=== PATIENT | female | born 1960 | race Caucasian/White ===

== ENCOUNTER 2020-08-10 22:16 | Emergency (ER) | payer BC ==
[~2020-08-10] VITALS: Ht 167.6 cm; Wt 76.4 kg
[2020-08-10 22:24] VITALS: TEMP 98.6
[2020-08-10 23:18] LABS: COLLECTION METHOD CLEAN CATCH
[2020-08-10 23:31] LABS: MUCOUS Present /lpf; PH 5 (5-8); URINE APPEARANCE Hazy; URINE BACTERIA Rare /hpf; URINE BILIRUBIN Negative (NEGATIVE); URINE BLOOD 1+ (NEGATIVE); URINE COLOR Yellow; URINE GLUCOSE Negative (NEGATIVE); URINE KETONE 1+ (NEGATIVE); URINE LEUKOCYTE ESTERASE 3+ (NEGATIVE); URINE NITRATE Negative (NEGATIVE); URINE PROTEIN(semi-quant) 2+ (NEGATIVE); URINE UROBILINOGEN Negative (NEGATIVE)
[2020-08-11 00:13] LABS: BASO # 0.1 (0.0-0.2); BASO % 0.6 % (0.0-2.0); EOS # 0.3 (0.0-0.7); EOS % 2.3 % (0-4.0); GRAN % 77.5 % (42.2-75.2); HEMOGLOBIN 10.9 g/dl (12.5-16.0); LYMPH # 1.4 (1.2-3.4); LYMPH % 12.2 % (20.0-51.0); MEAN CELL VOLUME 91 fl (80.0-100.0); MEAN CORPUSCULAR HEMOGLOBIN 30 pg (27.0-31.0); MEAN CORPUSCULAR HGB CONC 33 g/dl (33.0-37.0); MEAN PLATELET VOLUME 9.8 fl (7.4-10.4); MONO # 0.8 (0.1-0.6); MONO % 7.1 % (1.7-9.3); PLATELET COUNT 429 K/mm3 (130-400); RED BLOOD COUNT 3.65 M/mm3 (4.10-5.30); REDCELL DISTRIBUTION WIDTH-CV 12.4 % (11.5-14.5)
[2020-08-11 00:15] LABS: HEMATOCRIT 33.3 % (37.0-47.0)
[2020-08-11 00:19] LABS: ALBUMIN 4.3 gm/dL (3.5-5.0); BILIRUBIN,TOTAL 0.5 mg/dL (0.0-1.0); CALCIUM 9.4 mg/dL (8.4-10.2); CREATININE, serum 0.76 (0.52-1.25); TOTAL PROTEIN 7.5 gm/dL (6.4-8.2)
[2020-08-11 17:04] VITALS: BP 103/77; PULSE 102
== END 2020-08-11 17:07 | disposition short-term general hospital (02) ==
LOC: COL.ER 22:16
PROVIDERS: Nurse Practitioner
DX: N83.8 Other noninflammatory disorders of ovary, fallopian tube and broad ligament (principal); Z90.49 Acquired absence of other specified parts of digestive tract
CPT/HCPCS: J0696; J1170; J2405; J3010; J7030; J7040; J7120

== ENCOUNTER → 2020-08-20 | Outpatient (CLI) | payer BC | LOC: COL.LAB 15:35 | DX: Z20.828 Contact with and (suspected) exposure to other viral communicable diseases (principal) ==